=== PATIENT | male | born 1985 | race Caucasian/White ===

== ENCOUNTER 2016-04-22 06:11 | Emergency (ER) | payer SELFPAY ==
[2016-04-22] MEDS ORDERED: HYDROmorphone 1 MG/ML Syringe ONE ×3 (06:14→06:47)
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
[2016-04-22] MEDS ORDERED: HYDROmorphone 1 MG/ML Syringe IVPUSH ONE ×2 (06:28→06:39)
[2016-04-22] MEDS ORDERED: Sodium Chloride 0.9% 1,000 ML IV SCH (06:30)
[2016-04-22] MEDS ORDERED: Diphtheria,Pertussis(Acell),Tetanus Vaccine 0.5 ML SDV inactive IM ONE (06:36)
== END 2016-04-22 07:25 ==
LOC: JD.ED 06:11
DX: T24.212A Burn of second degree of left thigh, initial encounter (principal); T24.211A Burn of second degree of right thigh, initial encounter; T23.212A Burn of second degree of left thumb (nail), initial encounter; T23.211A Burn of second degree of right thumb (nail), initial encounter; T21.26XA Burn of second degree of male genital region, initial encounter; T31.11 Burns involving 10-19% of body surface with 10-19% third degree burns; F17.210 Nicotine dependence, cigarettes, uncomplicated; X08.8XXA Exposure to other specified smoke, fire and flames, initial encounter
CPT/HCPCS: 51702; 90471; 96361; 96374; 96376; 99283; 99291

== ENCOUNTER 2016-05-14 15:21 | Emergency (ER) | payer SELFPAY ==
[2016-05-14 15:32] VITALS: BP 134/107
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
== END 2016-05-14 16:30 | disposition home or self-care (01) ==
LOC: JD.ED 15:21
DX: T24.202D Burn of second degree of unspecified site of left lower limb, except ankle and foot, subsequent encounter (principal); T24.201D Burn of second degree of unspecified site of right lower limb, except ankle and foot, subsequent encounter; F17.210 Nicotine dependence, cigarettes, uncomplicated; Z98.890 Other specified postprocedural states; X58.XXXD Exposure to other specified factors, subsequent encounter
CPT/HCPCS: 99281; 99282

== ENCOUNTER 2017-01-23 23:42 | Emergency (ER) | payer MEDICAID ==
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
[2017-01-24 00:05] VITALS: BP 144/95
[2017-01-24] MEDS ORDERED: LORazepam 2 MG/ML MDV IVPUSH ONE ×2 (00:08→01:23)
[2017-01-24] MEDS ORDERED: Dextrose 5%-0.9% NaCl 1,000 ML IV SCH (00:15)
[2017-01-24] MEDS ORDERED: diphenhydrAMINE 50 MG/ML SDV IVPUSH ONE (01:23)
--- NOTE | 2017-01-24 07:21 | CR ---
Chest: Frontal view of the chest was obtained. Comparison: No prior chest x-ray. Heart size and mediastinum are normal. Lungs are clear. Bony structures are grossly intact. Impression: 1. Nothing acute is identified on frontal chest x-ray. Diagnostic code #1
== END 2017-01-24 03:00 | disposition home or self-care (01) ==
LOC: JD.ED 23:42
DX: F45.8 Other somatoform disorders (principal); F41.0 Panic disorder [episodic paroxysmal anxiety]; R07.89 Other chest pain; F17.210 Nicotine dependence, cigarettes, uncomplicated; Z79.899 Other long term (current) drug therapy; Z88.8 Allergy status to other drugs, medicaments and biological substances
CPT/HCPCS: 36415; 71010; 80053; 82150; 82553; 83735; 84484; 85025; 85610; 93005; 96361; 96374; 96375; 96376; 99285; G0480; J1200; J2060; J7042; 93010; 99284-25